=== PATIENT | male | born 1985 | race Caucasian/White ===

== ENCOUNTER 2017-06-05 03:57 | Emergency (ER) | payer SELFPAY ==
[2017-06-05 04:46] VITALS: TEMP 98.1; BMI 23.9
[2017-06-05] MEDS ORDERED: PANTOPRAZOLE SODIUM 40 MG in SODIUM CHLORIDE 100 ML IVPB ONE (04:53)
[2017-06-05] MEDS ORDERED: SODIUM CHLORIDE 1,000 ML IV STA (04:53)
[2017-06-05] MEDS ORDERED: morphine CARPU-JECT 4 MG/1 ML DISP.SYRIN IVPUSH ONE ×2 (04:53→07:40)
[2017-06-05] MEDS ORDERED: ONDANSETRON 4 MG/2 ML VIAL IVPUSH ONE (04:53)
--- NOTE | 2017-06-05 05:01 | PDOC ---
History of Present Illness - General Chief Complaint: Pain, Acute Stated Complaint: ABDOMINAL PAIN Time Seen by Provider: 06/05/17 04:29 History Source: Patient Exam Limitations: No Limitations - History of Present Illness Travel History: No Initial Comments: 06/05/17 04:56 32yo Male patient w/ PmHx: Appendectomy, Transgender surgery x2 presents to ED c /o RUQ abd pain radiating to upper back that began 4 days ago and has been constant. Patient also reports n/v/d x 2 days. Denies fever, CP, diff breathing , cough, congestion or any other complaints at this time. Timing/Duration: reports: getting worse. denies: constant, changing over time, intermittent, resolved prior to arrival, gone now, other Quality: reports: moderate. denies: mild, severe, aching, burning, cramping, dullness, fullness, sharpness, stabbing, throbbing, other Abdominal Pain Onset Location: reports: RUQ. denies: LUQ, RLQ, LLQ, epigastric , periumbilical, suprapubic, generalized abdomen, flank, unknown, other Pain Radiation: reports: back. denies: no radiation, RUQ, LUQ, RLQ, LLQ, epigastric, periumbilical, flank, groin, scapula, shoulder, chest, other Activities at Onset: reports: no specific activity. denies: none, exertion, emotional upset, rest, sleep, eating, working, sexual intercourse, other Treatment Prior to Arrive: worse with: analgesics, antacids, cold pack, heat, laxative, enema, other Past History - Travel Traveled outside of the country in the last 30 days: No Close contact w/someone who was outside of country & ill: No - Past Medical History Allergies/Adverse Reactions: Allergies Allergy/AdvReac Type Severity Reaction Status Date / Time acetaminophen [From Tylenol] Allergy Verified 06/05/17 04:35 aspirin Allergy Verified 06/05/17 04:35 Penicillins Allergy Verified 06/05/17 04:35 - Psycho/Social/Smoking Cessation Hx Suicidal Ideation: No Smoking History: Never smoked Abd/GI Specific PMHX - Complaint Specific PMHX Colitis: No Diverticulitis: No Gall Bladder Disease: No GERD: No Hepatitis: No Irritable Bowel Synd (IBS): No Pancreatitis: No GI Ulcer Disease: No Review of Systems - Review of Systems Able to Perform ROS?: Yes Is the patient limited [place] proficient: No ABD/GI: Yes: Diarrhea, Nausea, Poor Appetite, Poor Fluid Intake, Vomiting, Abdominal cramping. No: Abdominal Distended, Constipated : No: Burning, Dysuria, Flank Pain, Hematuria Musculoskeletal: Yes: Back Pain All Other Systems: Reviewed and Negative *Physical Exam - Vital Signs Last Vital Signs Temp Pulse Resp BP Pulse Ox 98.1 F 75 16 96/64 98 06/05/17 04:23 06/05/17 04:23 06/05/17 04:23 06/05/17 04:06/05/17 04:23 - Physical Exam General Appearance: Yes: Nourished, Appropriately Dressed. No: Apparent Distress, Mild Distress, Moderate Distress, Severe Distress Respiratory/Chest: positive: Lungs Clear, Normal Breath Sounds. negative: Respiratory Distress, Accessory Muscle Use, Labored Respiration, Rapid RR, Rhonchi, Stridor, Wheezing, Hyperresonant Cardiovascular: positive: Regular Rhythm, Regular Rate Gastrointestinal/Abdominal: positive: Tender, Soft, Increased Bowel Sounds, Guarding, Rebound, Tenderness (RUQ abdominal pain). negative: Distended Musculoskeletal: positive: Normal Inspection. negative: CVA Tenderness, Decreased Range of Motion, Vertebral Tenderness Extremity: positive: Normal Capillary Refill, Normal Inspection, Normal Range of Motion. negative: Pedal Edema, Swelling, Calf Tenderness, Erythema, Inflammation Integumentary: positive: Normal Color, Dry, Warm. 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
[2017-06-05 05:41] LABS: URINE APPEARANCE CLEAR; URINE BILIRUBIN NEGATIVE (NEGATIVE); URINE BLOOD 1+ (NEGATIVE); URINE COLOR STRAW; URINE GLUCOSE (UA) NEGATIVE (NEGATIVE); URINE KETONE NEGATIVE (NEGATIVE); URINE LEUK ESTERASE NEGATIVE (NEGATIVE); URINE NITRITE NEGATIVE (NEGATIVE); URINE PROTEIN NEGATIVE (NEGATIVE); URINE UROBILINOGEN NEGATIVE mg/dL (0.2-1.0)
[2017-06-05] MEDS ORDERED: PANTOPRAZOLE SODIUM 100 ML IVPB ONE (05:41)
[2017-06-05] MEDS ORDERED: morphine CARPU-JECT 4 MG/1 ML DISP.SYRIN ONE (05:41)
[2017-06-05 05:44] LABS: BASOPHIL 0.5 % (0-2.0); EOSINOPHIL 2.2 % (0-4.5); MCH 27.6 pg (25.7-33.7); MCHC 34.2 g/dl (32.0-35.9); MEAN CELL VOLUME 80.9 fl (80-96); NEUTROPHILS 74.1 % (42.8-82.8); RDW 18.4 % (11.9-15.9); URINE MUCUS RARE; URINE RBC 1 /hpf (0-3); URINE WBC <1 /hpf (3-5)
[2017-06-05] MEDS ORDERED: ONDANSETRON 4 MG/2 ML VIAL ONE (05:44)
[2017-06-05 05:52] LABS: WHITE BLOOD COUNT 7.5 K/mm3 (4.0-10.0)
[2017-06-05 06:02] LABS: ALBUMIN 3.5 g/dl (3.4-5.0); AMYLASE 46 U/L (25-115); ANION GAP 10 (8-16); BILIRUBIN,TOTAL 0.3 mg/dL (0.2-1.0); CALCIUM 8.7 mg/dL (8.5-10.1); CO2 21 mmol/L (21-32); CREATININE 0.7 mg/dL (0.7-1.3); GLUCOSE,RANDOM 84 mg/dL (74-106); SGPT/ALT 15 U/L (12-78); TOT PROT 6.9 g/dl (6.4-8.2)
[2017-06-05 06:05] LABS: ALK PHOS 62 U/L (45-117)
[2017-06-05 06:09] LABS: BILIRUBIN,DIRECT < 0.1 mg/dL (0.0-0.2); CPK 182 IU/L (39-308); SGOT/AST 24 U/L (15-37); TROPONIN I < 0.02 ng/ml (0.00-0.05)
[2017-06-05 06:27] VITALS: BP 106/60; PULSE 60
[2017-06-05 07:09] LABS: BASOPHIL 0.8 % (0-2.0); EOSINOPHIL 1.9 % (0-4.5); MCH 27.2 pg (25.7-33.7); MCHC 33.2 g/dl (32.0-35.9); MEAN CELL VOLUME 81.8 fl (80-96); MEAN PLT VOLUME 8.3 fl (7.5-11.1); NEUTROPHILS 70.5 % (42.8-82.8); PLATELET COUNT 141 K/MM3 (134-434); RDW 18.1 % (11.9-15.9); WHITE BLOOD COUNT 6.6 K/mm3 (4.0-10.0)
--- NOTE | 2017-06-05 07:45 | PDOC ---
*Physical Exam - Vital Signs Last Vital Signs Temp Pulse Resp BP Pulse Ox 98.1 F 60 18 106/60 99 06/05/17 04:23 06/05/17 06:25 06/05/17 06:25 06/05/17 06:25 06/05/17 06:25 - Physical Exam General Appearance: Yes: Appropriately Dressed. No: Apparent Distress HEENT: positive: Normal Voice Neck: positive: Supple Respiratory/Chest: positive: Lungs Clear, Normal Breath Sounds. negative: Respiratory Distress Cardiovascular: positive: Regular Rate, S1, S2 Gastrointestinal/Abdominal: positive: Normal Bowel Sounds, Tender (sig ttp to RUQ, no CVAT), Soft. negative: Distended, Guarding, Rebound Musculoskeletal: negative: CVA Tenderness Integumentary: positive: Dry, Warm Neurologic: positive: Fully Oriented, Alert, Normal Mood/Affect ED Treatment Course - LABORATORY CBC & Chemistry Diagram: 06/05/17 07:00 06/05/17 05:12 - ADDITIONAL ORDERS Additional order review: Laboratory Results 06/05/17 06/05/17 06/05/17 05:12 05:12 05:12 Sodium 136 Potassium 4.6 Chloride 105 Carbon Dioxide 21 Anion Gap 10 BUN 11 Creatinine 0.7 Random Glucose 84 Calcium 8.7 Total Bilirubin 0.3 Direct Bilirubin < 0.1 AST 24 ALT 15 Alkaline Phosphatase 62 Creatine Kinase 182 Creatine Kinase Index 0.8 CK-MB (CK-2) 1.483 Troponin I < 0.02 Total Protein 6.9 Albumin 3.5 Total Amylase 46 Lipase 148 Urine Color Straw Urine Appearance Clear Urine pH 8.0 Urine Protein Negative Urine Glucose (UA) Negative Urine Ketones Negative Urine Blood 1+ H Urine Nitrite Negative Urine Bilirubin Negative Urine Urobilinogen Negative Ur Leukocyte Esterase Negative Urine RBC 1 Urine WBC <1 Ur Epithelial Cells Rare Urine Mucus Rare 06/05/17 06/05/17 07:00 05:12 RBC 3.37 L 3.58 L MCV 81.8 80.9 MCHC 33.2 34.2 RDW 18.1 H 18.4 H MPV 8.3 Neutrophils % 70.5 74.1 Lymphocytes % 18.7 D 15.1 Monocytes % 8.1 8.1 Eosinophils % 1.9 2.2 Basophils % 0.8 0.5 - Medications Given in the ED: ED Medications Discontinued Medications Generic Name Dose Route Start Last Admin Trade Name Freq PRN Reason Stop Dose Admin Pantoprazole Sodium 40 mg/ 100 mls @ 200 mls/hr 06/05/17 04:53 06/05/17 05:51 Sodium Chloride IVPB 06/05/17 05:22 200 mls/hr ONCE ONE Administration Sodium Chloride 1,000 mls @ 1,000 mls/hr 06/05/17 04:53 06/05/17 05:51 Normal Saline - IV 06/05/17 05:52 1,000 mls/hr ASDIR STA Administration Morphine Sulfate 4 mg 06/05/17 04:53 06/05/17 05:51 Morphine Injection - IVPUSH 06/05/17 04:54 4 mg ONCE ONE Administration Ondansetron HCl 4 mg 06/05/17 04:53 06/05/17 05:51 Zofran Injection IVPUSH 06/05/17 04:54 4 mg ONCE ONE Administration Medical Decision Making - Medical Decision Making 06/05/17 07:41 Patient signed out to me at 7 AM Patient is a biological male transitioning to female, status post sex reassignment surgery and has been on spironolactone and estrogen for over 17 years, follows up in [place] were patient resides, appy, [place] the states currently and here with severe right upper quadrant pain with nausea, vomiting and diarrhea that started 4 days ago. Denies any dysuria, hematuria, fever or chills. No known history of kidney stones or gallstones. No history of similar symptoms. As per prior team, labs are unremarkable. Patient pending CT and ultrasound See exam Severe RUQ pain Possible gallstones, unlikely acute henna as labs unremarkable and no fever, unlikely renal colic, possible colitis given hx -continue symptomatic control -imaging pending 06/05/17 07:44 06/05/17 09:55 Mild heterogeneous echotexture to liver on US, no acute pathology. CT read pending 06/05/17 10:10 CT read as unremarkable. Pt appears comfortable on stretcher, but requesting rx for narcotics. I explained to patient that given normal workup that there is no medical evidence warranting narcotics at this time, but willing to give patient 1 tramadol to take home for use later as needed for pain. Patient now requesting food. Upon discharge, will instruct to follow-up with PMD if symptoms persist *DC/Admit/Observation/Transfer Diagnosis at time of Disposition: RUQ pain - Discharge Dispostion Disposition: HOME Condition at time of disposition: Improved - Patient Instructions Printed Discharge Instructions: DI for Abdominal Pain-Adult Additional Instructions: The cause of your pain is unclear at this time as your labs, ultrasound and CAT scans were all normal. Take Motrin or Tylenol as needed for pain and if pain persists, please follow-up with your PMD
[2017-06-05] MEDS ORDERED: morphine CARPU-JECT 2 MG/1 ML DISP.SYRIN ONE (07:57)
--- NOTE | 2017-06-05 09:42 | EKG ---
Test Reason : Blood Pressure : / mmHG Vent. Rate : 065 BPM Atrial Rate : 065 BPM P-R Int : 156 ms QRS Dur : 088 ms QT Int : 428 ms P-R-T Axes : 064 042 045 degrees QTc Int : 445 ms NORMAL SINUS RHYTHM WITH SINUS ARRHYTHMIA POSSIBLE LEFT ATRIAL ENLARGEMENT POOR R WAVE PROGRESSION BORDERLINE ECG NO PREVIOUS ECGS AVAILABLE Confirmed by MD NORM, WILLY ([id number]) on 06/05/2017 9:41:43 AM Referred By: Confirmed By:WILLY ZHENG MD
[2017-06-05] MEDS ORDERED: traMADol HCL 50 MG TABLET PO ONE (10:13)
[2017-06-05] MEDS ORDERED: traMADol HCL 50 MG TABLET ONE (10:21)
== END 2017-06-05 11:01 | disposition home or self-care (01) ==
LOC: JER 03:57
PROC: 3E033GC Introduction of Other Therapeutic Substance into Peripheral Vein, Percutaneous Approach (ICD-10-PCS; principal; 2017-06-05)
PROC: 3E033NZ Introduction of Analgesics, Hypnotics, Sedatives into Peripheral Vein, Percutaneous Approach (ICD-10-PCS; 2017-06-05)
PROC: 3E033NZ Introduction of Analgesics, Hypnotics, Sedatives into Peripheral Vein, Percutaneous Approach (ICD-10-PCS; 2017-06-05)
PROC: 3E033GC Introduction of Other Therapeutic Substance into Peripheral Vein, Percutaneous Approach (ICD-10-PCS; 2017-06-05)
DX: R10.11 Right upper quadrant pain (principal); Z87.890 Personal history of sex reassignment
CPT/HCPCS: 36415; 74177-TC; 76705-TC; 80048; 80076; 81003; 81015; 82150; 82553; 83690; 84484; 85025; 93005; 93010; 99283-25

== ENCOUNTER 2019-07-30 04:21 | Emergency (ER) | payer SELFPAY ==
[2019-07-30 04:40] VITALS: BMI 23.6
[2019-07-30] MEDS ORDERED: morphine CARPU-JECT 4 MG/1 ML DISP.SYRIN IVPUSH ONE ×2 (04:49→05:56)
[2019-07-30] MEDS ORDERED: LACTATED RINGERS SOLUTION 1000 ML INFUS.BAG IV ONE (04:49)
[2019-07-30] MEDS ORDERED: ONDANSETRON 4 MG/2 ML VIAL IVPUSH ONE (04:54)
[2019-07-30] MEDS ORDERED: MORPHINE SULFATE 2 MG/ML VIAL ONE ×2 (05:06→05:57)
[2019-07-30] MEDS ORDERED: ONDANSETRON 4 MG/2 ML VIAL ONE (05:06)
--- NOTE | 2019-07-30 05:19 | PDOC ---
History of Present Illness - General Chief Complaint: Pain, Acute Stated Complaint: ABD PAIN Time Seen by Provider: 07/30/19 04:38 History Source: Patient Exam Limitations: No Limitations - History of Present Illness Initial Comments: 07/30/19 05:15 34y M-F transgender (reconstruction surgery 3y ago), Cholelithiasis, Pancreatitis, Appendectomy presenting to ED with complaints of RUQ abdominal pain that started 4d ago getting worse. Pain is RUQ, radiates to the R flank, constant. Endorses nausea and vomiting when eating something. Also endorses nonbloody diarrhea and dysuria. Also endorses fever of 101 yesterday. She is visiting from [place]. Has not had pain like this before. Denies sob, chest pain , back pain, hematuria, blood in stools, hematemesis, chills. PMD: [place] PMH: see hpi PSH: see hpi Meds: estrogen Allergies: Tylenol, NSAIDs, PCN, ASA Past History - Past Medical History Allergies/Adverse Reactions: Allergies Allergy/AdvReac Type Severity Reaction Status Date / Time acetaminophen [From Tylenol] Allergy Verified 07/30/19 04:36 aspirin Allergy Verified 07/30/19 04:36 NSAIDS (Non-Steroidal Allergy Verified 07/30/19 04:36 Anti-Inflamma Penicillins Allergy Verified 07/30/19 04:36 Home Medications: Ambulatory Orders Estrogens,Conjugated [Premarin] 20 mg IM 07/30/19 Spironolactone [Aldactone] 100 mg PO BID 07/30/19 COPD: No Other medical history: Sex reassignment surgery - Psycho Social/Smoking Cessation Hx Smoking History: Never smoked Abd/GI Specific PMHX - Complaint Specific PMHX Colitis: No Diverticulitis: No Gall Bladder Disease: No GERD: No Hepatitis: No Irritable Bowel Synd (IBS): No Pancreatitis: No GI Ulcer Disease: No Review of Systems - Review of Systems Constitutional: Yes: Fever HEENTM: No: Symptoms Reported Respiratory: No: Symptoms reported Cardiac (ROS): No: Symptoms Reported ABD/GI: Yes: See HPI : Yes: See HPI Musculoskeletal: No: Symptoms Reported Integumentary: No: Symptoms Reported Neurological: No: Symptoms reported *Physical Exam - Vital Signs Last Vital Signs Temp Pulse Resp BP Pulse Ox 97.5 F L 72 18 108/64 100 07/30/19 04:37 07/30/19 04:37 07/30/19 04:37 07/30/19 04:37 07/30/19 04:37 - Physical Exam General Appearance: Yes: Appropriately Dressed, Thin. No: Apparent Distress HEENT: positive: EOMI, GEORGE. negative: Scleral Icterus (R), Scleral Icterus (L) Neck: positive: Trachea midline, Supple. negative: Lymphadenopathy (R), Lymphadenopathy (L) Respiratory/Chest: positive: Lungs Clear, Normal Breath Sounds. negative: Crackles, Rales, Rhonchi, Stridor, Wheezing Cardiovascular: positive: Regular Rhythm, Regular Rate, S1, S2. negative: Edema , JVD, Murmur Gastrointestinal/Abdominal: positive: Normal Bowel Sounds, Soft, Tenderness (RUQ , epigastric). negative: Distended, Guarding, Rebound, Mass Musculoskeletal: negative: CVA Tenderness Extremity: positive: Normal Capillary Refill. 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 ddx includes but not limited to cholecystiits, choledocolithaisis, pancreatisis , gastritis, gerd, colitis, nephrolithiasis will order labs, lact, lipase ruq sono, ekg -iv fluids, morphine, pepcid ekg: nsr at 70bpm normal intervals no signs of acute ischemia labs show elevated lipase at 500s. no white count, normal LFTs 07/30/19 05:59 pending AM sono, and urine (if bloody, may need ct to check for kidney stones) will be signed out to day team 07/30/19 07:08 signed out to day team Discharge - Discharge Information Problems reviewed: Yes Clinical Impression/Diagnosis: RUQ pain - Follow up/Referral - Patient Discharge Instructions - Post Discharge Activity
[2019-07-30 05:20] LABS: BASO % 1.4 % (0-2.0); HEMATOCRIT 35.2 % (32.4-45.2); HEMOGLOBIN 12.2 GM/dL (10.7-15.3); LYMPH % 27.5 % (8-40); MCH 31.2 pg (25.7-33.7); MCHC 34.5 g/dl (32.0-36.0); MEAN CELL VOLUME 90.2 fl (80-96); MEAN PLT VOLUME 8.8 fl (7.5-11.1); MONO % 10.7 % (3.8-10.2); NEUT % 55.4 % (42.8-82.8); PLATELET COUNT 142 K/MM3 (134-434); RDW 15.7 % (11.6-15.6); WHITE BLOOD COUNT 4.8 K/mm3 (4.0-10.0)
--- NOTE | 2019-07-30 05:20 | PDOC ---
Attending Attestation - Resident Resident Name: Chel Temple - ED Attending Attestation I have performed the following: I have examined & evaluated the patient, The case was reviewed & discussed with the resident, I agree w/resident's findings & plan - HPI HPI: 07/30/19 05:56 Pt has hx of GB stones, states that he has a hx of pancreatitis; No alcohol ingestion, however. Pt had a fever of 101.9 at home; here temp was 99F Pt has RUQ pain. No other complaints. - Physicial Exam PE: 07/30/19 05:57 Agree with resident exam; Pt has RUQ pain. Pt has minimal epig pain. - Medical Decision Making 07/30/19 05:58 Lactic acid, WBC, all labs normal, Only lipase is elevated.
[2019-07-30 05:40] LABS: INR 1.02 (0.83-1.09)
[2019-07-30 05:43] LABS: ALBUMIN 3.4 g/dl (3.4-5.0); BILIRUBIN,TOTAL 0.3 mg/dL (0.2-1); BLOOD UREA NITROGEN 15.4 mg/dL (7-18); CALCIUM 8.5 mg/dL (8.5-10.1); CREATININE 0.9 mg/dL (0.55-1.3); POTASSIUM 4.2 mmol/L (3.5-5.1); TOT PROT 6.5 g/dl (6.4-8.2)
[2019-07-30] MEDS ORDERED: FAMOTIDINE 20 MG/50 ML IVPB 20 MG/50 ML MG IVPB ONE ×2 (05:59→06:00)
[2019-07-30] MEDS ORDERED: morphine CARPU-JECT 2 MG/1 ML DISP.SYRIN IVPUSH ONE (06:00)
--- NOTE | 2019-07-30 07:11 | PDOC ---
*Physical Exam - Vital Signs Last Vital Signs Temp Pulse Resp BP Pulse Ox 97.9 F 68 18 152/65 98 07/30/19 06:27 07/30/19 06:27 07/30/19 06:27 07/30/19 06:27 07/30/19 06:27 ED Treatment Course - LABORATORY CBC & Chemistry Diagram: 07/30/19 05:10 07/30/19 05:10 - ADDITIONAL ORDERS Additional order review: Laboratory Results 07/30/19 07/30/19 07/30/19 05:10 05:10 05:10 PT with INR 12.00 INR 1.02 PTT (Actin FS) Sodium Potassium Chloride Carbon Dioxide Anion Gap BUN Creatinine Est GFR (CKD-EPI)AfAm Est GFR (CKD-EPI)NonAf Random Glucose Lactic Acid 1.0 Calcium Total Bilirubin AST ALT Alkaline Phosphatase Total Protein Albumin Lipase Blood Type A POSITIVE Antibody Screen Negative 07/30/19 07/30/19 07/30/19 05:10 05:10 05:10 PT with INR INR PTT (Actin FS) 33.1 Sodium 141 Potassium 4.2 Chloride 110 H Carbon Dioxide 28 Anion Gap 4 L BUN 15.4 Creatinine 0.9 Est GFR (CKD-EPI)AfAm 96.69 Est GFR (CKD-EPI)NonAf 83.42 Random Glucose 96 Lactic Acid Calcium 8.5 Total Bilirubin 0.3 AST 16 ALT 18 Alkaline Phosphatase 59 Total Protein 6.5 Albumin 3.4 Lipase 519 H Blood Type Antibody Screen 07/30/19 05:10 RBC 3.90 MCV 90.2 MCHC 34.5 RDW 15.7 H D MPV 8.8 Neutrophils % 55.4 D Lymphocytes % 27.5 D Monocytes % 10.7 H Eosinophils % 5.0 H D Basophils % 1.4 - Medications Given in the ED: ED Medications Discontinued Medications Generic Name Dose Route Start Last Admin Trade Name Freq PRN Reason Stop Dose Admin Famotidine/Sodium Chloride 20 mg in 50 mls @ 100 mls/hr 07/30/19 05:59 06:03 Pepcid 20 Mg Premixed Ivpb - IVPB 07/30/19 06:28 100 mls/hr ONCE ONE Administration Lactated Ringer's 1,000 ml 07/30/19 04:49 07/30/19 05:15 Lactated Ringers Solution IV 07/30/19 04:50 1,000 ml NOW ONE Administration Morphine Sulfate 2 mg 07/30/19 04:49 07/30/19 05:16 Morphine Injection - IVPUSH 07/30/19 04:50 2 mg ONCE ONE Administration Morphine Sulfate 2 mg 07/30/19 05:56 07/30/19 06:03 Morphine Injection - IVPUSH 07/30/19 05:57 Not Given ONCE ONE Morphine Sulfate 1 mg 07/30/19 06:00 07/30/19 06:03 Morphine Injection - IVPUSH 07/30/19 06:01 1 mg ONCE ONE Administration Ondansetron HCl 4 mg 07/30/19 04:54 07/30/19 05:16 Zofran Injection IVPUSH 07/30/19 04:55 4 mg ONCE ONE Administration Medical Decision Making - Medical Decision Making 07/30/2019 0700 Patient received on sign out from Dr. Temple. 34 male to female, hx of appy, cholelithiasis, pancreatitis, presenting to ED with RUQ abdominal pain that started 4 days ago. Reports nausea/vomiting/ diarrhea/fever. Dysuria w/o hematuria. Given morphine in the ED for pain control, as allergic to NSAIDs/toradol. Labs and WBC wnl in the ED. Afebrile in the ED. Lipase 500. DDx includes gallstones vs kidney stones. -RUQ sono -UA -PO challenge 07/30/19 09:49 US does not show cholelithiasis, cholecystitis, right hydronephrosis, or acute RUQ pathology. 07/30/19 12:22 UA does not show signs of UTI. Patient reassessed. Reports that he feels nauseated w/o vomiting after eating crackers and drinking juice. -CT abd pelv w/ contrast 07/30/19 17:52 CT shows likely multiple small appendicoliths w/o CT evidence of acute appendicitis. Few diverticula at junction of distal descending and proximal sigmoid colon with suggestion of wall thickening. Cannot r/o colitis. No definite surrounding inflammatory changes identified. Minimal free fluid in the cul-de-sac, of uncertain etiology or clinical significance. Given that the patient has had similar symptoms several times over the past year , plan to d/c home with Flagyl for colitis, and f/u PCP when he returns home to [place] at the end of the week. Return if worse. Patient verbalizes understanding and agreement with this plan. Discharge - Discharge Information Problems reviewed: Yes Clinical Impression/Diagnosis: RUQ pain Disposition: HOME - Admission No - Additional Discharge Information Prescriptions: metroNIDAZOLE [Flagyl -] 250 mg PO TID 7 Days #21 tablet - Follow up/Referral - Patient Discharge Instructions Additional Instructions: Please take Flagyl three times per day for 7 days. Please make a follow up appointment with your primary care physician when you return home to [place]. If you experience any new, worsening, or concerning symptoms, including severe pain, vomiting, blood in the vomit or stool, chills, fever that does not respond to medications, or any other concerns, please return to the emergency department. - Post Discharge Activity
[2019-07-30] MEDS ORDERED: SODIUM CHLORIDE 0.9% 500 ML INFUS.BAG IV ONE (09:36)
--- NOTE | 2019-07-30 10:00 | EKG ---
Test Reason : Blood Pressure : / mmHG Vent. Rate : 070 BPM Atrial Rate : 070 BPM P-R Int : 162 ms QRS Dur : 088 ms QT Int : 398 ms P-R-T Axes : 068 042 051 degrees QTc Int : 429 ms NORMAL SINUS RHYTHM NORMAL ECG WHEN COMPARED WITH ECG OF 05-JUN-2017 05:44, NO SIGNIFICANT CHANGE WAS FOUND Confirmed by JAKOB TO MD ([id number]) on 07/30/2019 9:59:27 AM Referred By: Confirmed By:JAKOB TO MD
[2019-07-30 12:09] LABS: URINE APPEARANCE CLEAR; URINE BILIRUBIN NEGATIVE (NEGATIVE); URINE COLOR YELLOW; URINE GLUCOSE (UA) NEGATIVE (NEGATIVE); URINE KETONE NEGATIVE (NEGATIVE); URINE LEUK ESTERASE NEGATIVE (NEGATIVE); URINE NITRITE NEGATIVE (NEGATIVE); URINE PROTEIN NEGATIVE (NEGATIVE)
[2019-07-30 17:52] VITALS: BP 116/74; PULSE 69; TEMP 97.5
== END 2019-07-30 18:20 | disposition home or self-care (01) ==
LOC: JER 04:21
PROC: 3E033GC Introduction of Other Therapeutic Substance into Peripheral Vein, Percutaneous Approach (ICD-10-PCS; principal; 2019-07-30)
PROC: 3E033GC Introduction of Other Therapeutic Substance into Peripheral Vein, Percutaneous Approach (ICD-10-PCS; 2019-07-30)
PROC: 3E033NZ Introduction of Analgesics, Hypnotics, Sedatives into Peripheral Vein, Percutaneous Approach (ICD-10-PCS; 2019-07-30)
PROC: 3E033NZ Introduction of Analgesics, Hypnotics, Sedatives into Peripheral Vein, Percutaneous Approach (ICD-10-PCS; 2019-07-30)
DX: R10.11 Right upper quadrant pain (principal); F64.0 Transsexualism; Z88.0 Allergy status to penicillin; Z88.6 Allergy status to analgesic agent
CPT/HCPCS: 36415; 74177-TC; 76705-TC; 80053; 81003; 83605; 83690; 84703; 85025; 85610; 85730; 86850; 86900; 86901; 87086; 93005; 93010; 99284-25